=== PATIENT | female | born 1975 | race Caucasian/White ===

== ENCOUNTER 2020-02-15 01:37 | Outpatient (CLI) | payer BC, SELFPAY ==
--- NOTE | 2020-02-15 | DI.US_ITS ---
EXAM: US ABDOMEN CLINICAL HISTORY: EPIGASTRIC PAIN, R10.13 TECHNIQUE: Ultrasound abdomen performed using standard protocol. COMPARISON: No exams were available for comparison FINDINGS: ABDOMINAL AORTA AND IVC: Visualized portions normal caliber. PANCREAS: There is a question of an isoechoic mass in the body of the pancreas measuring 3.5 x 3 x 2. 4 cm. Echogenic foci are seen internally which may represent calcifications. LIVER: The liver is heterogeneous with multiple hypoechoic masses present. The largest lies in the l eft lobe and measures 2.7 x 2.5 x 3.5 cm. Hepatopedal flow in the Portal Vein. GALLBLADDER: No evidence of cholelithiasis. No evidence of wall thickening. No pericholecystic fluid identified. BILIARY SYSTEM: Common bile duct measures 7.9 mm. Mild extrahepatic biliary ductal dilatation. MARCOS'S SIGN: Negative. KIDNEYS: Kidneys are symmetric in size. No evidence of renal calculi. No evidence of hydronephrosis. No renal mass or cyst identified. SPLEEN: Not enlarged. ASCITES: None seen. IMPRESSION: 1. Multiple hepatic masses. Primary diagnostic concern is for hepatic metastases. 2. Question of a pancreatic mass. 3. CT scan of the abdomen and pelvis with oral and IV contrast is recommended for further evaluation. DATA REPOSITORY:
== END 2020-02-15 01:57 ==
PROVIDERS: Visit Provider Family Medicine
DX: R10.13 Epigastric pain (principal); K76.89 Other specified diseases of liver; K86.89 Other specified diseases of pancreas
CPT/HCPCS: 76700

== ENCOUNTER 2020-02-16 03:46 | Outpatient (CLI) | payer BC, SELFPAY ==
[2020-02-16 10:57] LABS: Abs Immature Grans 0.03 k/cumm (0.0-0.09); Absolute Basophil Count 0.08 k/cumm (0.0-0.2); Absolute Eosinophil Count 0.06 k/cumm (0.0-0.7); Absolute Lymphocyte Count 0.95 k/cumm (1.2-3.4); Basophils % 0.5; Eosinophils % 0.4; HCT 42.8 % (36.0-46.0); HGB 14.4 g/dL (12.0-15.5); Immature Grans % 0.2 %; Lymphocytes % 6.3; Mean Corp. HGB Concentration 33.6 g/dL (32.0-36.0); Mean Corpuscular Hemoglobin 29.6 pg (27.0-33.0); Mean Corpuscular Volume 88.1 fL (80-95); Mean Platelet Volume 10.9 fL (8.0-11.0); Monocytes % 7.9; Neutrophils % 84.7; Platelet Count 472 x1000/uL (130-400); RBC 4.86 m/cumm (4.00-5.20); RBC Distribution Width 14.9 % (11.7-14.6); White Blood Cell Count 15.13 k/cumm (4.4-10.8)
[2020-02-16 11:00] LABS: Absolute Neutrophil Count 12.82 k/cumm (1.2-6.7)
[2020-02-16 12:16] LABS: ALT 101 U/L (14-59); AST 78 U/L (15-37); Albumin 3.6 g/dL (3.4-5.0); Alkaline Phosphatase 647 U/L (46-116); Anion Gap 11.3 mmol/L (3-11); BUN 11 mg/dL (7-18); CO2 25.7 mmol/L (21.0-32.0); CREATININE 0.71 mg/dL (0.55-1.02); Calcium 9.6 mg/dL (8.5-10.1); Chloride 94 mmol/L (98-107); Glucose 174 mg/dL (74-106); Lipase 138 U/L (73-393); Potassium 4.5 mmol/L (3.5-5.1); Sodium 131 mmol/L (136-145); Total Protein 7.6 g/dL (6.4-8.2)
== END 2020-02-16 04:06 ==
PROVIDERS: Visit Provider Family Medicine
DX: R10.13 Epigastric pain (principal)
CPT/HCPCS: 36415; 80053; 83690; 85025

== ENCOUNTER 2020-02-18 19:04 | Outpatient (REF) | payer BC, SELFPAY ==
[2020-02-23 14:16] LABS: Helicobacter pylori Ag, Feces Negative (Negative)
== END 2020-02-18 19:24 ==
LOC: LBN 19:04
PROVIDERS: Visit Provider Family Medicine
DX: R10.13 Epigastric pain (principal)
CPT/HCPCS: 87338

== ENCOUNTER 2020-03-25 05:07 | Outpatient (RCR) | payer BC, SELFPAY ==
[2020-03-25] MEDS: Heparin 500 UNITS/5 ML SYRINGE IV (08:10)
[2020-03-25] MEDS: Normal Saline Flush 10 ML SYR IVP (08:10)
[2020-03-25 08:21] LABS: HCT 38.8 % (36.0-46.0); HGB 13.3 g/dL (11.2-15.7); Lymphocytes % 7.9; MCH 30.3 pg (27.0-33.0); MCHC 34.3 % (32.0-36.0); MCV 88.4 fL (80-95); MPV 10.1 fL (8.0-11.0); Monocytes % 10.6; Neutrophils % 79.3; RBC 4.39 10^6/uL (3.93-5.22); RDW 16.6 % (11.7-14.6); RDW-SD 53.1 fL; WBC 16.71 10^3/uL (4.4-10.8)
[2020-03-25 08:22] LABS: Absolute Basophil Count 0.13 10^3/uL (0.0-0.2); Absolute Eosinophil Count 0.13 10^3/uL (0.0-0.7); Absolute Lymphocyte Count 1.32 10^3/uL (1.2-3.4); Absolute Monocyte Count 1.77 10^3/uL (0.1-0.8); Basophils % 0.8; Eosinophils % 0.8; Immature Grans % 0.6; Nucleated RBC 0 %
[2020-03-25 08:46] LABS: Absolute Neutrophil Count 13.25 10^3/uL (1.2-6.7)
[2020-03-25 08:47] LABS: Diff Comment Diff Reviewed; Platelet Count 616 10^3/uL (130-400)
[2020-03-25 08:48] LABS: Anisocytosis 1+; Hypochromasia 1+; Poikilocytes 1+
[2020-03-25 08:50] LABS: ALT 106 U/L (14-59); AST 123 U/L (15-37); Albumin 2.5 g/dL (3.4-5.0); Alkaline Phosphatase 1119 U/L (46-116); Anion Gap 10.2 mmol/L (3-11); BUN 6 mg/dL (7-18); Bilirubin, Total 4.3 mg/dL (0.2-1.0); CO2 27.8 mmol/L (21.0-32.0); CREATININE 0.58 mg/dL (0.55-1.02); Calcium 9.4 mg/dL (8.5-10.1); Chloride 96 mmol/L (98-107); Glucose 119 mg/dL (74-106); Potassium 3.3 mmol/L (3.5-5.1); Sodium 134 mmol/L (136-145); Total Protein 6.9 g/dL (6.4-8.2)
[2020-03-28 12:43] LABS: CA 19-9 326 U/mL (<35)
--- NOTE | 2020-04-05 03:36 | ED.GENADUL_ITS ---
Discharge Plan Disposition Patient Disposition: HOME Discharge Details Reason For Visit: PORT DRAW. Attending Provider: Sam Valenzuela Primary Care Provider: Madina Mcneal Home Meds and New Rx's Prescriptions: No Action acetaminophen 500 mg capsule 500 mg PO Q6H PRNRF: 0 cyclobenzaprine 5 mg tablet 5 mg PO BID PRNRF: 0 hydromorphone 2 mg tablet 2 mg PO Q3H PRNRF: 0 ibuprofen 400 mg tablet 400 mg PO Q6H RF: 0 prochlorperazine maleate 10 mg tablet 10 mg PO Q6H PRNRF: 0 Discharge Data Discharge Date/Time-TO BE ENTERED AT DEPARTURE: 03/28/20 23:59 HPI Related Data Home Medications Medication Instructions Recorded Confirmed acetaminophen 500 mg capsule 500 mg PO Q6H PRN 03/17/20 04/04/20 cyclobenzaprine 5 mg tablet 5 mg PO BID PRN tab 03/17/20 04/04/20 hydromorphone 2 mg tablet 2 mg PO Q3H PRN tab 03/17/20 04/04/20 ibuprofen 400 mg tablet 400 mg PO Q6H 03/17/20 04/04/20 prochlorperazine maleate 10 mg 10 mg PO Q6H PRN 03/17/20 04/04/20 tablet Allergies Allergy/AdvReac Type Severity Reaction Status Date / Time Fish Containing Products Allergy Verified 03/29/20 13:01 erythromycin base AdvReac Intermediate Feels Unverified 03/29/20 13:40 [Erythromycin Base] worse after taking Nuts/peanuts Allergy Severe Hard time Uncoded 03/29/20 13:01 breathing [facility] Medical History (Updated 04/04/20 @ 10:33 by Shaye Elizabeth MD) Ascites (Acute) Cancer of pancreas (Chronic) Stage IV, metastases to liver, lung, ovaries, LN diagnosed January 2020 Cancer related pain (Acute) 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 diagnosis Patient unable to tell me what this Dx is exactly other than she is monitored by Opthalmology q 6mo to ensure no vision loss. Surgical History Oral surgery for cyst R upper jaw approx 2-3cms 10/01/13 Family History (Updated 03/29/20 @ 17:20 by Marissa Barraza MD) Father Heart disease Cirrhosis with alcoholism sober x 20+ years Mother Age: 69 Hyperlipidemia Benign tumor of eye Migraine Hearing loss functionally deaf Maternal Grandmother Lung cancer Sister Migraine Hearing loss Osteoarthritis Brother No problems noted. Other Diabetes Personal history of malignant neoplasm Social History (Updated 03/29/20 @ 17:24 by Marissa Barraza MD) Smoking/Tobacco Use Status: Never Alcohol Intake: former Details: social drinker only Caregiver/Support person: Yes Household members: spouse and other Details: , Albino Housing: house Number of Children: 0 Education Level: high school Do you need help understanding health information?: Often current occupation: disabled due to illness. did work at [employer] x 22 yrs Do you think of yourself as: straight/heterosexual Current gender identity: female What is your relationship status?: How often do you talk on the phone with friends or family?: three or more times per week How often do you get together with friends or relatives?: once per week Panel score (0-1 are the most socially isolated patients): 2 What type of physical activity do you participate in: yoga Duration: < 15 minutes/day Frequency: daily Special ojnathan needs: No Seatbelt use: always Working smoke detector in home: Yes Fire extinguisher in home: Yes Do you feel safe at home: Yes Do you feel safe in your relationship?: Yes Additional Social history: Starting having epigastric pain and GI discomfort in September 2019. Thought it was stress. Tried H2 mahendra and then PPI. Had an abnormal ultrasound at the end of January followed by an upper EUS on 03/03/20. Results showed stage IV pancreatic cancer, confirmed by biopsy. Mary has lost >30 lbs this year. She is jaundiced and has some ascites. Her , Albino, is very supportive. They just celebrated their 18th wedding anniversary in February 2020. Never smoker. Normal weight all her life. NO risk factors for pancreatic cancer. Still adjusting to fact that she has stage IV cancer. History History 1 Para 0 Hx # Term Pregnancies 0 Multiple births Hx # Pregnancies Ectopic pregnancies AB induced 0 Hx Number of Living Children AB spontaneous 1 Course Lab/Test Results Lab/Test Results: Laboratory Tests Range/Units 03/25/20 03/25/20 03/25/20 08:09 08:09 08:09 WBC (4.4-10.8) 10^3/uL 16.71 H RBC (3.93-5.22) 10^6/uL 4.39 Hgb (11.2-15.7) g/dL 13.3 Hct (36.0-46.0) % 38.8 MCV (80-95) fL 88.4 MCH (27.0-33.0) pg 30.3 MCHC (32.0-36.0) % 34.3 RDW (11.7-14.6) % 16.6 H Plt Count (130-400) 10^3/uL 616 H MPV (8.0-11.0) fL 10.1 Immature Gran % 0.6 Neutrophils % 79.3 Lymphocytes % 7.9 Monocytes % 10.6 Eosinophils % 0.8 Basophils % 0.8 Nucleated RBC % % 0 Absolute Neutrophils (1.2-6.7) 10^3/uL 13.25 H Absolute Lymphocytes (1.2-3.4) 10^3/uL 1.32 Absolute Monocytes (0.1-0.8) 10^3/uL 1.77 H Absolute Eosinophils (0.0-0.7) 10^3/uL 0.13 Absolute Basophils (0.0-0.2) 10^3/uL 0.13 RBC Morphology See below Hypochromasia 1+ Poikilocytosis 1+ Anisocytosis 1+ Sodium (136-145) mmol/L 134 L Potassium (3.5-5.1) mmol/L 3.3 L Chloride (98-107) mmol/L 96 L Carbon Dioxide (21.0-32.0) mmol/L 27.8 Anion Gap (3-11) mmol/L 10.2 BUN (7-18) mg/dL 6 L Creatinine (0.55-1.02) mg/dL 0.58 Estimated GFR/1.73 m2 (mL/min/1.73m2) >= 60.00 Glucose (74-106) mg/dL 119 H Calcium (8.5-10.1) mg/dL 9.4 Total Bilirubin (0.2-1.0) mg/dL 4.3 H AST (15-37) U/L 123 H ALT (14-59) U/L 106 H Alkaline Phosphatase (46-116) U/L 1119 H Total Protein (6.4-8.2) g/dL 6.9 Albumin (3.4-5.0) g/dL 2.5 L CA 19-9 Antigen (<35) U/mL 326 H
== END 2020-03-28 23:59 | disposition home or self-care (01) ==
LOC: INF 05:07
PROVIDERS: Visit Provider Internal Medicine Hematology & Oncology
DX: C25.9 Malignant neoplasm of pancreas, unspecified (principal); C78.7 Secondary malignant neoplasm of liver and intrahepatic bile duct; Z45.2 Encounter for adjustment and management of vascular access device
CPT/HCPCS: 36591; 80053; 85025; 86301

== ENCOUNTER 2020-04-05 03:39 | Emergency (ER) | payer BC, SELFPAY ==
[2020-04-05] VITALS (48 sets, daily range): BP systolic 83–119; BP diastolic 44–78; PULSE 91–130; RESP 13–27; TEMP 36.6–36.8; O2SAT 98–100
--- NOTE | 2020-04-05 03:30 | DI.CT_ITS ---
EXAM: CT ABDOMEN PELVIS W CLINICAL HISTORY: ABDOMINAL PAIN, PANCREATIC CA, R/O ACUTE DZ. TECHNIQUE: Imaging Protocol: Axial computed tomography images with coronal and sagittal reformatted images were created and reviewed CONTRAST MATERIAL: Intravenous: Omnipaque 350 Contrast volume:87 Oral: no COMPARISON: US US ABDOMEN from 02/15/2020 FINDINGS: The liver shows innumerable low-density lesions consistent with metastases. There is a mass in the t ail of the pancreas. There is a large quantity of ascites. There is some high density material seen on the left side of the abdomen and extending into the lower pelvis concerning for acute hemorrhage. There is a curvilinear area of high attenuation seen in the left lower quadrant anteriorly, which i s suspicious for active hemorrhage. In the overlying soft tissues, there is an air bubble, likely re flecting the site of paracentesis. There is no bowel dilatation. There is a low-density mass in the superior spleen suspicious for a metastasis. There are small bilateral pleural effusions. There ar e numerous nodules at the lung bases consistent with pulmonary metastases. The kidneys and adrenals are unremarkable. There is para-aortic adenopathy. Bladder is unremarkable. There are bilateral he terogeneous ovarian masses containing calcification. Impression: Findings consistent with hemoperitoneum with active bleeding near the site of the paracentesis in the left lower quadrant. Large quantity of ascites. Pancreatic mass and diffuse metastatic disease. RADIATION DOSE DELIVERED: Total DLP DATA REPOSITORY: All CT scans at this facility are submitted to the National Radiology Data Registry (NRDR) Dose Index Registry (DIR) with the [employer] [place] [employer] ([employer]). RADIATION OPTIMIZATION: All CT scans at this facility use at least one of these dose optimization te chniques: automated exposure control; mA and/or kV adjustment per patient size (includes targeted exa ms where dose is matched to clinical indication); or iterative reconstruction.
[2020-04-05] MEDS: Normal Saline 1,000 ML 1000 ML IV ×2 (04:05→06:25)
--- NOTE | 2020-04-05 04:05 | W.ED.GENAD ---
Discharge Plan Disposition Patient Disposition: [facility] Condition: Stable Discharge Details Chief Complaint: Abd Prob Clinical Impression: SIRS (systemic inflammatory response syndrome), Acute anemia, S/P abdominal paracentesis, Stage IV adenocarcinoma of pancreas, Liver metastases, Lung metastases Primary Care Provider: Hilda Alvarenga ED Provider: Aziza Kendrick Home Meds and New Rx's Prescriptions: No Action acetaminophen 500 mg capsule 500 mg PO Q6H PRNRF: 0 cyclobenzaprine 5 mg tablet 5 mg PO BID PRNRF: 0 hydromorphone 2 mg tablet 2 mg PO Q3H PRNRF: 0 ibuprofen 400 mg tablet 400 mg PO Q6H RF: 0 prochlorperazine maleate 10 mg tablet 10 mg PO Q6H PRNRF: 0 Medical Decision Making 0345 -- 44-year-old female with a history of recently diagnosed stage IV pancreatic cancer with metastasis to liver, lung and ovaries presents for vomiting and abdominal pain that started after a therapeutic paracentesis today at home by Dr. Elizabeth. EMS noted patient hypotensive with 92/57. BP on arrival 94/57. Patient is jaundiced and appears generally fatigued. Her abdomen is minimally distended but soft and diffusely tender. She appears uncomfortable and speaks in broken sentences due to labored breathing and pain. Differential diagnosis includes seroma, abscess, ascites, peritonitis. Will place an IV, bolus IV fluids, screening labs, urinalysis, CT abdomen and pelvis and give morphine and Zofran and reassess. 0500 --labs and imaging reviewed. White blood cell count 26, was 16 on 03/25. Hemoglobin 7.8, was 13.3 on 8 8. Lactate 2.7. T bili 2.8. Alk phos 787. CT notes extensive metastasis as well as a large infiltrating masslike lesion extending from the left iliac fossa down to the left lower quadrant. In review of CT abdomen report from 03/[address] [facility], this large masslike lesion was not noted. Concern that this could be bleeding or infection. Case discussed with Dr. Millard who recommends admission to hospitalist. Case discussed with Dr. Coulter who recommends transfer to [facility] for tertiary care. 0600 --Case discussed with [facility] general surgery who accepts patient for transfer. As it is unclear if patient will require acute surgical intervention, patient will be transferred to the ED for initial evaluation. Accepting ED physician Dr. Miller. Will start antibiotics and PRBC transfusion. Case discussed with patient and over the phone who is agreeable with plan. BP improving with fluid, currently 116/74. Medical Records Medical records reviewed: Yes I reviewed the patient's medical records. Imaging Data Radiologic Study: Radiologist's impression: CT Abdomen And Pelvis With Contrast Exam date and time: 04/05/2020 3:39 AM Age: 44 years old Clinical indication: Abdominal pain; Generalized; Patient HX: Pancreatic cancer S/P paracentesis, R/O acute dz; Additional info: Known metastasis to liver, lung, ovaries TECHNIQUE: Imaging protocol: Computed tomography of the abdomen and pelvis with intravenous contrast. Radiation optimization: All CT scans at this facility use at least one of these dose optimization techniques: automated exposure control; mA and/or kV adjustment per patient size (includes targeted exams where dose is matched to clinical indication); or iterative reconstruction. Contrast material: OMNIPAQUE 350; Contrast volume: 77 ml; Contrast route: INTRAVENOUS (IV); COMPARISON: US ABDOMEN 02/15/2020 7:06 AM FINDINGS: Lungs: Pulmonary metastatic disease. Pleural space: Small bilateral pleural effusions likely malignant effusions. Liver: Extensive hepatic metastatic disease. Gallbladder and bile ducts: Normal. No calcified stones. No ductal dilation. Pancreas: Normal. No ductal dilation. Spleen: Splenic hypodensity may reflect splenic metastatic disease. Adrenals: Normal. No mass. Kidneys and ureters: Normal. No hydronephrosis. Stomach and bowel: Unremarkable. No obstruction. No mucosal thickening. Appendix: No evidence of appendicitis. Intraperitoneal space: Moderate abdominal ascites. Probable peritoneal implants and segmental omental caking compatible with peritoneal carcinomatosis with large infiltrating mass lesion extending from the pelvis across the left iliac fossa into the left lower quadrant. Vasculature: Unremarkable. No abdominal aortic aneurysm. Lymph nodes: Unremarkable. No enlarged lymph nodes. Bladder: Unremarkable as visualized. Reproductive: Bilateral cystic ovarian lesions compatible with nonspecific follicular cysts. Bones/joints: Unremarkable. No acute fracture. Soft tissues: Unremarkable. IMPRESSION: 1. Pulmonary metastatic disease. 2. Small bilateral pleural effusions likely malignant effusions. 3. Extensive hepatic metastatic disease. 4. Moderate abdominal ascites. Probable peritoneal implants and segmental omental caking compatible with peritoneal carcinomatosis with large infiltrating mass lesion extending from the pelvis across the left iliac fossa into the left lower quadrant. 5. Splenic hypodensity may reflect splenic metastatic disease. Lab Data Lab results reviewed: Yes I reviewed the patient's lab results. Labs: 04/05/20 05:00 Blood Blood Culture - Pending 04/05/20 03:57 Blood Blood Culture - Pending Laboratory Tests Range/Units 04/05/20 04/05/20 04/05/20 04:00 04:00 04:00 WBC (4.4-10.8) 10^3/uL 26.93 H* RBC (3.93-5.22) 10^6/uL 2.53 L Hgb (11.2-15.7) g/dL 7.8 L Hct (36.0-46.0) % 22.8 L MCV (80-95) fL 90.1 MCH (27.0-33.0) pg 30.8 MCHC (32.0-36.0) % 34.2 RDW (11.7-14.6) % 18.2 H Plt Count (130-400) 10^3/uL 658 H MPV (8.0-11.0) fL 9.9 Immature Gran % 1.1 Neutrophils % 85.6 Lymphocytes % 5.5 Monocytes % 7.6 Eosinophils % 0.0 Basophils % 0.2 Nucleated RBC % % 0 Absolute Neutrophils (1.2-6.7) 10^3/uL 23.05 H Absolute Lymphocytes (1.2-3.4) 10^3/uL 1.48 Absolute Monocytes (0.1-0.8) 10^3/uL 2.05 H Absolute Eosinophils (0.0-0.7) 10^3/uL 0.00 Absolute Basophils (0.0-0.2) 10^3/uL 0.05 RBC Morphology See below Hypochromasia 1+ Poikilocytosis 1+ Stomatocytes 2+ PT (9.3-11.0) sec INR (0.9-1.1) APTT (21.0-31.4) sec VBG Lactate (0.6-1.4) mmol/L 2.7 H* Sodium (136-145) mmol/L 132 L Potassium (3.5-5.1) mmol/L 4.0 Chloride (98-107) mmol/L 97 L Carbon Dioxide (21.0-32.0) mmol/L 25.0 Anion Gap (3-11) mmol/L 10.0 BUN (7-18) mg/dL 15 Creatinine (0.55-1.02) mg/dL 0.86 Estimated GFR/1.73 m2 (mL/min/1.73m2) >= 60.00 Glucose (74-106) mg/dL 167 H Calcium (8.5-10.1) mg/dL 8.8 Total Bilirubin (0.2-1.0) mg/dL 2.8 H AST (15-37) U/L 61 H ALT (14-59) U/L 59 Alkaline Phosphatase (46-116) U/L 787 H Total Protein (6.4-8.2) g/dL 5.7 L Albumin (3.4-5.0) g/dL 2.1 L Lipase (73-393) U/L 108 Crossmatch Range/Units 04/05/20 04/05/20 04:00 06:10 WBC (4.4-10.8) 10^3/uL RBC (3.93-5.22) 10^6/uL Hgb (11.2-15.7) g/dL Hct (36.0-46.0) % MCV (80-95) fL MCH (27.0-33.0) pg MCHC (32.0-36.0) % RDW (11.7-14.6) % Plt Count (130-400) 10^3/uL MPV (8.0-11.0) fL Immature Gran % Neutrophils % Lymphocytes % Monocytes % Eosinophils % Basophils % Nucleated RBC % % Absolute Neutrophils (1.2-6.7) 10^3/uL Absolute Lymphocytes (1.2-3.4) 10^3/uL Absolute Monocytes (0.1-0.8) 10^3/uL Absolute Eosinophils (0.0-0.7) 10^3/uL Absolute Basophils (0.0-0.2) 10^3/uL RBC Morphology Hypochromasia Poikilocytosis Stomatocytes PT (9.3-11.0) sec 11.0 INR (0.9-1.1) 1.1 APTT (21.0-31.4) sec 24.3 VBG Lactate (0.6-1.4) mmol/L Sodium (136-145) mmol/L Potassium (3.5-5.1) mmol/L Chloride (98-107) mmol/L Carbon Dioxide (21.0-32.0) mmol/L Anion Gap (3-11) mmol/L BUN (7-18) mg/dL Creatinine (0.55-1.02) mg/dL Estimated GFR/1.73 m2 (mL/min/1.73m2) Glucose (74-106) mg/dL Calcium (8.5-10.1) mg/dL Total Bilirubin (0.2-1.0) mg/dL AST (15-37) U/L ALT (14-59) U/L Alkaline Phosphatase (46-116) U/L Total Protein (6.4-8.2) g/dL Albumin (3.4-5.0) g/dL Lipase (73-393) U/L Crossmatch See Detail HPI General Mode of arrival: ambulatory. Date/Time Provider Initiated Documentation: 04/05/20 03:53. Limitations to Documentation: no limitations. Information obtained by: patient. HPI Narrative: Pt is a 44yo F with a history of recently diagnosed stage IV pancreatic cancer with metastasis to lung, liver and ovaries who presents to the ED w/ a c/o nausea, vomiting and abdominal pain today after a paracentesis at home by Dr. Elizabeth. Dr. Elizabeth removed approximately 800 mL's of fluid for therapeutic paracentesis as patient had been having abdominal pain. She states shortly after the procedure she developed pain on both sides of her abdomen and has vomited 3 times which is mainly been food or liquid. She took ibuprofen, Tylenol and a half a tab of Dilaudid but vomited shortly after these and did not have any relief of pain. She denies any fever, diarrhea, urinary symptoms. She states she has been constipated and denies any rectal bleeding. Related Data Home Medications Medication Instructions Recorded Confirmed acetaminophen 500 mg capsule 500 mg PO Q6H PRN 03/17/20 04/04/20 cyclobenzaprine 5 mg tablet 5 mg PO BID PRN tab 03/17/20 04/04/20 hydromorphone 2 mg tablet 2 mg PO Q3H PRN tab 03/17/20 04/04/20 ibuprofen 400 mg tablet 400 mg PO Q6H 03/17/20 04/04/20 prochlorperazine maleate 10 mg 10 mg PO Q6H PRN 03/17/20 04/04/20 tablet Allergies Allergy/AdvReac Type Severity Reaction Status Date / Time Fish Containing Products Allergy Verified 04/05/20 04:22 erythromycin base AdvReac Intermediate Feels Unverified 04/05/20 04:22 [Erythromycin Base] worse after taking Nuts/peanuts Allergy Severe Hard time Uncoded 04/05/20 04:22 breathing General Stated Complaint: Abd Prob ZULLY: 3 Review of Systems All systems reviewed & are unremarkable except as noted in HPI and below Constitutional Constitutional: Reports as per HPI, Denies chills and Denies fever(s) Eyes Eyes: Denies blurry vision ENT Ears, Nose, Mouth, and Throat: Denies dizziness, Denies sore throat and Denies throat swelling Cardiovascular Cardiovascular: Denies chest pain and Denies dyspnea Respiratory Respiratory: Denies cough and Denies dyspnea Gastrointestinal Gastrointestinal: Reports abdominal pain, Denies diarrhea and Reports vomiting Genitourinary Genitourinary: Denies hematuria and Denies dysuria Musculoskeletal Musculoskeletal: Denies back pain and Denies numbness Integumentary/Breasts Skin/Breast: Denies lesions and Denies rash Neurologic Neurologic: Denies dizziness, Denies localized weakness and Denies numbness Allergic/Immunologic Allergic/Immunologic: Denies throat swelling [facility] Medical History (Updated 04/05/20 @ 06:34 by Aziza Kendrick DO) Ascites (Acute) Cancer of pancreas (Chronic) Stage IV, metastases to liver, lung, ovaries, LN diagnosed January 2020 Cancer related pain (Acute) 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 diagnosis Patient unable to tell me what this Dx is exactly other than she is monitored by Opthalmology q 6mo to ensure no vision loss. Surgical History Oral surgery for cyst R upper jaw approx 2-3cms 10/01/13 Family History (Updated 03/29/20 @ 17:20 by Marissa Barraza MD) Father Heart disease Cirrhosis with alcoholism sober x 20+ years Mother Age: 69 Hyperlipidemia Benign tumor of eye Migraine Hearing loss functionally deaf Maternal Grandmother Lung cancer Sister Migraine Hearing loss Osteoarthritis Brother No problems noted. Other Diabetes Personal history of malignant neoplasm Social History (Updated 03/29/20 @ 17:24 by Marissa Barraza MD) Smoking/Tobacco Use Status: Never Alcohol Intake: former Details: social drinker only Drug use: Never Substance use type: does not use Caregiver/Support person: Yes Household members: spouse and other Details: , Albino Housing: house Number of Children: 0 Education Level: high school Do you need help understanding health information?: Often current occupation: disabled due to illness. did work at [employer] x 22 yrs Do you think of yourself as: straight/heterosexual Current gender identity: female What is your relationship status?: How often do you talk on the phone with friends or family?: three or more times per week How often do you get together with friends or relatives?: once per week Panel score (0-1 are the most socially isolated patients): 2 What type of physical activity do you participate in: yoga Duration: < 15 minutes/day Frequency: daily Special jonathan needs: No Seatbelt use: always Working smoke detector in home: Yes Fire extinguisher in home: Yes Do you feel safe at home: Yes Do you feel safe in your relationship?: Yes Additional Social history: Starting having epigastric pain and GI discomfort in September 2019. Thought it was stress. Tried H2 mahendra and then PPI. Had an abnormal ultrasound at the end of January followed by an upper EUS on 03/03/20. Results showed stage IV pancreatic cancer, confirmed by biopsy. Mary has lost >30 lbs this year. She is jaundiced and has some ascites. Her , Albino, is very supportive. They just celebrated their 18th wedding anniversary in February 2020. Never smoker. Normal weight all her life. NO risk factors for pancreatic cancer. Still adjusting to fact that she has stage IV cancer. History History 1 Para 0 Hx # Term Pregnancies 0 Multiple births Hx # Pregnancies Ectopic pregnancies AB induced 0 Hx Number of Living Children AB spontaneous 1 Exam Const General: cooperative, uncomfortable, no acute distress and ill appearing chronically Orientation: alert, awake and oriented x3 HENMT Head: normal to inspection Face and sinus: normal facial exam Eyes General: appearance normal, both eyes and all related structures Pupils: PERRL EOM: EOM intact bilaterally Neck Neck: normal visual inspection and No submandibular swelling Lymphatic: no lymphadenopathy noted Chest Chest: normal inspection of the chest and no tenderness Resp Effort & Inspection: normal respiratory effort and able to speak in complete sentences Auscultation: clear to auscultation bilaterally Cardio Rate: regular rate Rhythm: regular rhythm GI Inspection: distended (minimal) Palpation: soft, not firm, not rigid and tender (diffuse) Auscultation: hypoactive bowel sounds Skin General skin exam: no rashes or lesions noted and jaundice Neuro General: patient alert, patient awake, patient oriented x3 and moves all extremities Cognition: normal cognition Speech: speech normal Motor: muscle tone normal throughout Sensory Exam: no sensory deficits noted Extrem General: normal to inspection, full ROM, capillary refill normal, no calf tenderness bilaterally and no edema Psych Appearance: grossly normal Mental Status: mental status grossly normal Speech and Movement: speech and movement normal Affect: normal affect Course Vital Signs Vital signs: Vital Signs Temperature 97.9 F 04/05/20 03:42 Pulse 104 H 04/05/20 03:42 Respiratory Rate 16 04/05/20 03:42 Blood Pressure 94/57 L 04/05/20 03:42 Pulse Oximetry 100 04/05/20 03:42 Temperature 97.9 F 04/05/20 03:42 Temperature Source Temporal Artery Scan 04/05/20 03:42 Pulse 104 H 04/05/20 03:42 Respiratory Rate 16 04/05/20 03:42 Respiratory Effort Non-Labored 04/05/20 04:05 Blood Pressure 94/57 L 04/05/20 03:42 Blood Pressure Position Sitting 04/05/20 03:42 Pulse Oximetry 100 04/05/20 03:42 Oxygen Delivery Method Room Air 04/05/20 03:42 Oxygen Flow Rate 0 04/05/20 03:42 Lab/Test Results Lab/Test Results: 04/05/20 03:46 Blood Blood Culture - Pending 04/05/20 03:46 Blood Blood Culture - Pending
[2020-04-05] MEDS: Prochlorperazine 10 MG/2 ML VIAL IVP (04:08)
[2020-04-05 04:10] LABS: Abs Immature Grans 0.29 10^3/uL (0.0-0.06); Absolute Lymphocyte Count 1.48 10^3/uL (1.2-3.4); Absolute Monocyte Count 2.05 10^3/uL (0.1-0.8); Basophils % 0.2; HCT 22.8 % (36.0-46.0); HGB 7.8 g/dL (11.2-15.7); Immature Grans % 1.1; Lymphocytes % 5.5; MCH 30.8 pg (27.0-33.0); MCHC 34.2 % (32.0-36.0); MCV 90.1 fL (80-95); MPV 9.9 fL (8.0-11.0); Monocytes % 7.6; Neutrophils % 85.6; Nucleated RBC 0 %; Platelet Count 658 10^3/uL (130-400); RBC 2.53 10^6/uL (3.93-5.22); RDW 18.2 % (11.7-14.6); RDW-SD 58.6 fL
[2020-04-05 04:22] LABS: Absolute Basophil Count 0.05 10^3/uL (0.0-0.2); Absolute Neutrophil Count 23.05 10^3/uL (1.2-6.7); INR 1.1 (0.9-1.1); PTT Activated 24.3 sec (21.0-31.4)
[2020-04-05 04:33] LABS: Diff Comment Agrees w/ Instrument; Hypochromasia 1+
[2020-04-05 04:34] LABS: Poikilocytes 1+; Stomatocytes 2+; Target Cells 2+
[2020-04-05 04:35] LABS: ALT 59 U/L (14-59); AST 61 U/L (15-37); Albumin 2.1 g/dL (3.4-5.0); Alkaline Phosphatase 787 U/L (46-116); BUN 15 mg/dL (7-18); Bilirubin, Total 2.8 mg/dL (0.2-1.0); CREATININE 0.86 mg/dL (0.55-1.02); Calcium 8.8 mg/dL (8.5-10.1); Chloride 97 mmol/L (98-107); Glucose 167 mg/dL (74-106); Lipase 108 U/L (73-393); Sodium 132 mmol/L (136-145); Total Protein 5.7 g/dL (6.4-8.2)
[2020-04-05] MEDS: Omnipaque 350 MG/ML 100 ML BTL IJ (04:51)
[2020-04-05] MEDS: Normal Saline - Diluent 50 ML VIAL IV (04:52)
[2020-04-05] MEDS: Normal Saline Flush 10 ML SYR IVP (04:53)
--- NOTE | 2020-04-05 04:57 | DI.VRAD_ITS ---
PROCEDURE INFORMATION: Exam: CT Abdomen And Pelvis With Contrast Exam date and time: 04/05/2020 3:39 AM Age: 44 years old Clinical indication: Abdominal pain; Generalized; Patient HX: Pancreatic cancer S/P paracentesis, R/O acute dz; Additional info: Known metastasis to liver, lung, ovaries TECHNIQUE: Imaging protocol: Computed tomography of the abdomen and pelvis with intravenous contrast. Radiation optimization: All CT scans at this facility use at least one of these dose optimization techniques: automated exposure control; mA and/or kV adjustment per patient size (includes targeted exams where dose is matched to clinical indication); or iterative reconstruction. Contrast material: OMNIPAQUE 350; Contrast volume: 77 ml; Contrast route: INTRAVENOUS (IV); COMPARISON: US ABDOMEN 02/15/2020 7:06 AM FINDINGS: Lungs: Pulmonary metastatic disease. Pleural space: Small bilateral pleural effusions likely malignant effusions. Liver: Extensive hepatic metastatic disease. Gallbladder and bile ducts: Normal. No calcified stones. No ductal dilation. Pancreas: Normal. No ductal dilation. Spleen: Splenic hypodensity may reflect splenic metastatic disease. Adrenals: Normal. No mass. Kidneys and ureters: Normal. No hydronephrosis. Stomach and bowel: Unremarkable. No obstruction. No mucosal thickening. Appendix: No evidence of appendicitis. Intraperitoneal space: Moderate abdominal ascites. Probable peritoneal implants and segmental omental caking compatible with peritoneal carcinomatosis with large infiltrating mass lesion extending from the pelvis across the left iliac fossa into the left lower quadrant. Vasculature: Unremarkable. No abdominal aortic aneurysm. Lymph nodes: Unremarkable. No enlarged lymph nodes. Bladder: Unremarkable as visualized. Reproductive: Bilateral cystic ovarian lesions compatible with nonspecific follicular cysts. Bones/joints: Unremarkable. No acute fracture. Soft tissues: Unremarkable. IMPRESSION: 1. Pulmonary metastatic disease. 2. Small bilateral pleural effusions likely malignant effusions. 3. Extensive hepatic metastatic disease. 4. Moderate abdominal ascites. Probable peritoneal implants and segmental omental caking compatible with peritoneal carcinomatosis with large infiltrating mass lesion extending from the pelvis across the left iliac fossa into the left lower quadrant. 5. Splenic hypodensity may reflect splenic metastatic disease. Dictated and Authenticated by: Jeremy Palma MD. Ordering:APRIL Ervin MD
[2020-04-05] MEDS: PIPERACILLIN/TAZO 3.375 GM in Normal Saline 50 ML IVPB (06:38)
--- NOTE | 2020-04-05 08:20 | NUR.NOTE ---
Nursing Note: Patient left with EMS @ 0815 with blood hanging @ 150mL/hr vitals just prior to leaving Temp: 36.6 BP: 104/60 R: 19 O2: 99% RA HR: 114
--- NOTE | 2020-04-06 08:00 | NUR.NOTE ---
Nursing Note: A [facility] report was at the export freight clerk desk with notes on it. Not knowing whether it was dealt with, I accessed the chart to be sure that the [place] [facility] Noted that it was in the physician note, and after speaking with Dr. Antunez I will not be sending [place] [facility] [place] Kasandra Causey
[2020-04-07 07:40] LABS: Lactate 2.7 mmol/L (0.6-1.4)
[2020-04-07 07:42] LABS: WBC 26.93 10^3/uL (4.4-10.8)
--- NOTE | 2020-04-10 07:17 | NUR.NOTE ---
[place] transferred [place] [facility] [place] blood culture report faxed to [phone].Nursing Note:
== END 2020-04-05 08:17 | disposition short-term general hospital (02) ==
PROVIDERS: Emergency Provider Physician Assistant; PCP Nurse Practitioner Family
DX: R65.10 Systemic inflammatory response syndrome (SIRS) of non-infectious origin without acute organ dysfunction (principal); D64.9 Anemia, unspecified; C25.9 Malignant neoplasm of pancreas, unspecified; C78.7 Secondary malignant neoplasm of liver and intrahepatic bile duct; C78.00 Secondary malignant neoplasm of unspecified lung; Z98.890 Other specified postprocedural states
CPT/HCPCS: 36415; 36591; 80053; 81025; 83690; 86850; 86900; 86901; 86920; 87040; 96361; 96365; 96375; 96376; 99285; 74177; 83605; 85025; 85610; 85730; J0780; J2543; J3490; P9016

== ENCOUNTER 2020-04-22 04:30 | Outpatient (RCR) | payer BC, SELFPAY ==
[2020-04-15] MEDS: Normal Saline Flush 10 ML SYR IVP (08:45)
[2020-04-15 09:01] LABS: Abs Immature Grans 0.45 10^3/uL (0.0-0.06); HCT 30.9 % (36.0-46.0); HGB 10.3 g/dL (11.2-15.7); MCH 30.7 pg (27.0-33.0); MCHC 33.3 % (32.0-36.0); MCV 92.2 fL (80-95); MPV 9.2 fL (8.0-11.0); Nucleated RBC 0 %; RBC 3.35 10^6/uL (3.93-5.22); RDW 18.6 % (11.7-14.6); RDW-SD 61.3 fL; WBC 21.61 10^3/uL (4.4-10.8)
[2020-04-15 09:23] LABS: ALT 57 U/L (14-59); AST 88 U/L (15-37); Albumin 1.7 g/dL (3.4-5.0); Anion Gap 6.2 mmol/L (3-11); BUN 9 mg/dL (7-18); CO2 29.8 mmol/L (21.0-32.0); CREATININE 0.48 mg/dL (0.55-1.02); Calcium 8.6 mg/dL (8.5-10.1); Chloride 96 mmol/L (98-107); Glucose 101 mg/dL (74-106); Potassium 3.2 mmol/L (3.5-5.1); Sodium 132 mmol/L (136-145)
[2020-04-15 09:28] LABS: Alkaline Phosphatase 1283 U/L (46-116)
[2020-04-15 09:40] LABS: Absolute Lymphocyte Count 1.51 10^3/uL (1.2-3.4); Absolute Monocyte Count 1.73 10^3/uL (0.1-0.8); Absolute Neutrophil Count 17.94 10^3/uL (1.2-6.7); Bands % 1
[2020-04-15 09:41] LABS: Diff Comment Manual Differential; Metamyelocytes % 1; Myelocytes % 1; RBC Morphology Normal
[2020-04-15 09:42] LABS: Platelet Count 826 10^3/uL (130-400)
[2020-04-18 10:02] LABS: CA 19-9 288 U/mL (<35)
[2020-04-22] MEDS: Heparin 500 UNITS/5 ML SYRINGE IV (07:20)
[2020-04-22] MEDS: Normal Saline Flush 10 ML SYR IVP (07:20)
[2020-04-22 07:29] LABS: Abs Immature Grans 1.03 10^3/uL (0.0-0.06); Absolute Eosinophil Count 0.11 10^3/uL (0.0-0.7); Basophils % 0.4; Eosinophils % 0.3; HCT 34.2 % (36.0-46.0); HGB 11.7 g/dL (11.2-15.7); Immature Grans % 2.8; Lymphocytes % 3.8; MCH 30.5 pg (27.0-33.0); MCHC 34.2 % (32.0-36.0); MCV 89.1 fL (80-95); MPV 9.4 fL (8.0-11.0); Monocytes % 8.1; Neutrophils % 84.6; Nucleated RBC 0 %; RBC 3.84 10^6/uL (3.93-5.22); RDW 18.1 % (11.7-14.6); RDW-SD 55.7 fL
[2020-04-22 07:31] LABS: ALT 54 U/L (14-59); AST 78 U/L (15-37); Albumin 1.7 g/dL (3.4-5.0); Alkaline Phosphatase 509 U/L (46-116); Anion Gap 9.9 mmol/L (3-11); BUN 11 mg/dL (7-18); Bilirubin, Total 9.8 mg/dL (0.2-1.0); CO2 29.1 mmol/L (21.0-32.0); Calcium 8.5 mg/dL (8.5-10.1); Chloride 92 mmol/L (98-107); Glucose 109 mg/dL (74-106); Potassium 3.1 mmol/L (3.5-5.1); Sodium 131 mmol/L (136-145)
[2020-04-22 07:49] LABS: Absolute Basophil Count 0.15 10^3/uL (0.0-0.2); Absolute Monocyte Count 2.99 10^3/uL (0.1-0.8); Absolute Neutrophil Count 31.26 10^3/uL (1.2-6.7)
[2020-04-22 07:50] LABS: Platelet Count 598 10^3/uL (130-400)
[2020-04-22 07:51] LABS: Anisocytosis 2+; Diff Comment Agrees w/ Instrument; Polychromasia Present
[2020-04-22 07:52] LABS: Poikilocytes 1+
[2020-04-22 08:17] LABS: WBC 36.95 10^3/uL (4.4-10.8)
[2020-04-25 11:57] LABS: CA 19-9 310 U/mL (<35)
== END 2020-04-27 23:59 | disposition home or self-care (01) ==
LOC: INF 04:30
PROVIDERS: PCP Nurse Practitioner Family; Visit Provider Internal Medicine Hematology & Oncology
DX: C25.9 Malignant neoplasm of pancreas, unspecified (principal); C78.7 Secondary malignant neoplasm of liver and intrahepatic bile duct; Z45.2 Encounter for adjustment and management of vascular access device
CPT/HCPCS: 36591; 80053; 85025; 86301

== ENCOUNTER 2020-04-29 05:13 | Outpatient (RCR) | payer BC, SELFPAY ==
[2020-04-29] MEDS: Normal Saline Flush 10 ML SYR IVP (09:04)
[2020-04-29 09:20] LABS: Abs Immature Grans 0.46 10^3/uL (0.0-0.06); HGB 12.4 g/dL (11.2-15.7); MCHC 34.4 % (32.0-36.0); Nucleated RBC 0 %; RBC 4.14 10^6/uL (3.93-5.22); RDW 18.8 % (11.7-14.6); RDW-SD 57.7 fL
[2020-04-29 09:25] LABS: ALT 34 U/L (14-59); AST 57 U/L (15-37); Albumin 1.2 g/dL (3.4-5.0); Alkaline Phosphatase 688 U/L (46-116); Anion Gap 7.9 mmol/L (3-11); BUN 8 mg/dL (7-18); Bilirubin, Total 8.8 mg/dL (0.2-1.0); CO2 28.1 mmol/L (21.0-32.0); CREATININE 0.61 mg/dL (0.55-1.02); Calcium 8.5 mg/dL (8.5-10.1); Chloride 91 mmol/L (98-107); Glucose 97 mg/dL (74-106); Potassium 3.2 mmol/L (3.5-5.1); Sodium 127 mmol/L (136-145); Total Protein 5.5 g/dL (6.4-8.2)
[2020-04-29 09:39] LABS: Anisocytosis 1+; Diff Comment Manual Differential; Poikilocytes 1+
[2020-04-29 09:40] LABS: Absolute Lymphocyte Count 0.28 10^3/uL (1.2-3.4); Absolute Monocyte Count 2.52 10^3/uL (0.1-0.8)
[2020-04-29 09:41] LABS: Platelet Count 612 10^3/uL (130-400)
[2020-05-02 10:30] LABS: CA 19-9 213 U/mL (<35)
== END 2020-05-28 23:59 | disposition home or self-care (01) ==
LOC: INF 05:13
PROVIDERS: PCP Nurse Practitioner Family; Visit Provider Internal Medicine Hematology & Oncology
DX: C25.9 Malignant neoplasm of pancreas, unspecified (principal); C78.7 Secondary malignant neoplasm of liver and intrahepatic bile duct; Z45.2 Encounter for adjustment and management of vascular access device
CPT/HCPCS: 36591; 80053; 85025; 86301